=== PATIENT | male | born 1970 | race Hispanic/Latino ===

== ENCOUNTER 2022-04-15 18:05 | Emergency (ER) | payer SELFPAY ==
[~2022-04-15] VITALS: Ht 188 cm; Wt 108.9 kg
[2022-04-15] MEDS ORDERED: Vancomycin IV 1 GM in SODIUM CHLORIDE 0.9% 250ML 250 ML IV ONE (18:45)
[2022-04-15] MEDS ORDERED: PIPERACILLIN/TAZOBACTAM 3.375 GM VIAL ONE (19:03)
[2022-04-15] MEDS ORDERED: SODIUM CHLORIDE 0.9% 250ML 250 ML ONE (19:04)
[2022-04-15] MEDS ORDERED: SODIUM CHLORIDE 0.9% 100 ML ONE (19:04)
[2022-04-15] MEDS ORDERED: Vancomycin IV 1 GM VIAL ONE (19:04)
[2022-04-15] MEDS ORDERED: SODIUM CHLORIDE 0.9% 1000ML 1,000 ML IV SCH (19:15)
[2022-04-15] MEDS ORDERED: SODIUM CHLORIDE 0.9% 1000ML 1,000 ML ONE (19:31)
== END 2022-04-15 23:34 | disposition other institution (70) ==
LOC: FSED 18:12
DX: E11.621 Type 2 diabetes mellitus with foot ulcer (principal); L97.519 Non-pressure chronic ulcer of other part of right foot with unspecified severity; L03.031 Cellulitis of right toe; Z20.822 Contact with and (suspected) exposure to COVID-19
CPT/HCPCS: 73630; 80048; 85025; 99284; J2543; J3370; J7030; J7050 ×2; U0002